=== PATIENT | male | born 1970 | race Caucasian/White ===

== ENCOUNTER 2018-02-08 03:34 | Inpatient (IN) | payer MEDICARE, MEDICAID ==
[~2018-02-08] VITALS: Ht 152.4 cm; Wt 59.0 kg
[2018-02-08] MEDS ORDERED: METHYLPREDNISOLONE SOD SUCC 125 MG/2 ML VIAL IV STA (03:54)
[2018-02-08] MEDS ORDERED: IPRATROPIUM BROMIDE (0.02%) 0.5MG/2.5ML NEB HHN STA (03:54)
[2018-02-08] MEDS ORDERED: ALBUTEROL (0.083%) 2.5MG/3ML NEB HHN STA (03:54)
[2018-02-08] MEDS ORDERED: ASPIRIN 81MG TABLET PO ONE (04:00)
[2018-02-08] MEDS ORDERED: MAGNESIUM 2 G PREMIX 50 ML IV ONE (04:00)
[2018-02-08] MEDS ORDERED: ASPIRIN 300MG SUPP PR ONE (04:15)
[2018-02-08 04:55] LABS: D-DIMER 0.74 mg/L FEU (<0.50); PROTHROMBIN TIME 10.2 sec (9.4-11.6)
[2018-02-08] MEDS ORDERED: PIPERACILLIN/TAZ 3.375G PREMIX 50 ML IV SCH (05:16)
[2018-02-08 05:22] LABS: CHLORIDE 96 mEq/L (98-107)
[2018-02-08 05:27] LABS: ETHANOL BLOOD < 10 mg/dL
[2018-02-08 05:38] LABS: CLARITY URINE CLOUDY (CLEAR); COLOR URINE YELLOW (YELLOW); KETONES URINE NEGATIVE (NEGATIVE); LEUKOCYTE ESTERASE URINE 3+ (NEGATIVE); NITRITE URINE NEGATIVE (NEGATIVE); OCCULT BLOOD URINE 1+ (NEGATIVE); PH URINE 6.5 (4.5-8.0); PROTEIN URINE 1+ (NEGATIVE); SPECIFIC GRAVITY URINE 1.014 (1.005-1.030); UROBILINOGEN URINE 0.2 E.U./dL (0.2-1.0)
[2018-02-08 05:58] LABS: BG BASE EXCESS 2.6 mmol/L (-2.0-2.0); BG CARBOXYHEMOGLOBIN 1.4 % (0.5-1.5); BG DEOXYHEMOGLOBIN 9.6 % (0.0-5.0); BG FRACTION INSPIRED OXYGEN 50; BG HCO3 ACT 28.8 mmol/L (22.0-26.0); BG OXYGEN SATURATION 90.3 % (92.0-98.5); BG PCO2 50.6 mmHg (35.0-45.0); BG PH 7.373 (7.350-7.450); BG PO2 56.3 mmHg (75.0-100.0); BG SAMPLE SITE RIGHT RADIAL; BG TOTAL HEMOGLOBIN 14.3 g/dL (12.0-18.0); BG VENT MODE MASK - TRACH
[2018-02-08 06:02] LABS: HEMATOCRIT. 40.9 % (42.0-52.0); HEMOGLOBIN. 14.1 g/dL (14.0-18.0); MEAN CORPUSCULAR HEMOGLOBIN 32.2 pg (28.0-32.0); MEAN CORPUSCULAR VOLUME 93.1 fL (80.0-94.0); MEAN PLATELET VOLUME 9.6 fl (7.4-10.4); PLATELET 148 x1000/uL (130-400); RED CELL DISTRIBUTION WIDTH 13.8 % (11.6-14.6)
[2018-02-08 06:06] LABS: *AMPHETAMINES SCREEN URINE NEGATIVE (NEGATIVE); *BARBITURATES SCREEN URINE PRESUMTIVE POSITIVE (NEGATIVE); *BENZODIAZEPINES SCREEN URINE PRESUMTIVE POSITIVE (NEGATIVE); *COCAINE SCREEN URINE NEGATIVE (NEGATIVE); METHADONE URINE SCREEN NEGATIVE (NEGATIVE)
[2018-02-08 06:07] LABS: CANNABINOID URINE SCREEN NEGATIVE (NEGATIVE); OPIATES URINE SCREEN NEGATIVE (NEGATIVE); PHENCYCLIDINE URINE SCREEN NEGATIVE (NEGATIVE)
[2018-02-08 09:01] LABS: PLATELET ESTIMATE NORMAL
[2018-02-08 10:30] VITALS: BP 96/51
[2018-02-08] MEDS ORDERED: GUAIFENESIN 200MG/10ML SUGAR FREE UDC PO PRN (11:15)
[2018-02-08] MEDS ORDERED: DIPHENHYDRAMINE 50MG/ML VIAL IV PRN (11:15)
[2018-02-08] MEDS ORDERED: DOCUSATE SODIUM 100MG CAPSULE PO PRN (11:15)
[2018-02-08] MEDS ORDERED: NITROGLYCERIN 0.4MG TABLET SL SL PRN (11:15)
[2018-02-08] MEDS ORDERED: NA PHOS,M-B/NA PHOS,DI-BA ENEMA 118ML PR PRN (11:15)
[2018-02-08] MEDS ORDERED: VANCOMYCIN 1 G PREMIX 200 ML IV SCH (11:15)
[2018-02-08] MEDS ORDERED: ONDANSETRON HCL 4MG/2ML VIAL IV PRN (11:15)
[2018-02-08] MEDS ORDERED: MAGNESIUM/ALUMINUM HYDROXIDE/SIMETHICONE 30ML UDC PO PRN (11:15)
[2018-02-08] MEDS ORDERED: ACETAMINOPHEN 325MG TABLET PO PRN (11:15)
[2018-02-08] MEDS ORDERED: CLONIDINE 0.1MG TABLET PO PRN (11:15)
[2018-02-08 12:00] VITALS: BP 94/50
[2018-02-08] MEDS ORDERED: MEDICATION NOT ON FORMULARY EA (Cholecalciferol (Vitamin D) 1 CAP) PO SCH (12:00)
[2018-02-08] MEDS ORDERED: LORA10TA7 PO (12:06)
[2018-02-08] MEDS ORDERED: METO-293 PO (12:06)
[2018-02-08] MEDS ORDERED: PHEN32.43 JT (12:06)
[2018-02-08] MEDS ORDERED: FERR325T6 PO (12:06)
[2018-02-08] MEDS ORDERED: CHOL100046 PO (12:06)
[2018-02-08] MEDS ORDERED: LEVE500T19 PO (12:06)
[2018-02-08] MEDS ORDERED: CLONIDINE 0.1MG TABLET JT PRN (12:20)
[2018-02-08] MEDS ORDERED: GUAIFENESIN 200MG/10ML SUGAR FREE UDC JT PRN (12:21)
[2018-02-08] MEDS ORDERED: MAGNESIUM/ALUMINUM HYDROXIDE/SIMETHICONE 30ML UDC JT PRN (12:21)
[2018-02-08] MEDS ORDERED: MEDICATION NOT ON FORMULARY EA (Ferrous Sulfate 325 MG) PO SCH (13:00)
[2018-02-08] MEDS ORDERED: VANCOMYCIN 1 G PREMIX 200 ML IV NR (13:00)
[2018-02-08] MEDS ORDERED: POTASSIUM CHLORIDE 20MEQ/PACKET PO NR (13:10)
[2018-02-08] MEDS: ENOXAPARIN 40MG/0.4ML SYR SUBCUT SCH (14:00)
[2018-02-08] MEDS: METOCLOPRAMIDE 10MG/10 ML UDC JT SCH ×3 (14:00→20:07)
[2018-02-08] MEDS: CHOLECALCIFEROL (D3) 1000 UNIT TABLET JT SCH (14:01)
[2018-02-08] MEDS: SODIUM CHLORIDE 0.9% 1,000 ML IV SCH (14:01)
[2018-02-08] MEDS: PIPERACILLIN/TAZ 3.375G PREMIX 50 ML IV SCH ×2 (14:02→20:29)
[2018-02-08] MEDS: LEVETIRACETAM 500MG/5ML CUP JT SCH ×2 (14:10→17:47)
[2018-02-08] MEDS: FERROUS SULFATE 300MG/5ML UDC JT SCH ×2 (14:14→17:47)
[2018-02-08] MEDS: IPRATROPIUM/ALBUTEROL 0.5-3(2.5)MG/3ML NEB HHN SCH ×3 (14:36→21:14)
[2018-02-08 16:00] VITALS: BP 106/61
[2018-02-08 16:10] LABS: LDL CHOLESTEROL 75 mg/dL (5-100)
[2018-02-08 16:12] LABS: CREATINE KINASE 16 IU/L (39-308); HDL CHOLESTEROL 33 mg/dL (40-59)
[2018-02-08 16:14] LABS: CREATINE KINASE MB FRACTION 0.8 ng/mL (0.5-3.6)
[2018-02-08] MEDS: BUDESONIDE 0.5MG/2ML NEB HHN SCH (17:11)
[2018-02-08] MEDS: VANCOMYCIN 1250MG in DEXTROSE 5% WATER 250ML IV SCH ×2 (17:41→22:26)
[2018-02-08 20:00] VITALS: BP 102/57
[2018-02-08] MEDS: PHENOBARBITAL 30 MG TABLET JT SCH (20:07)
[2018-02-08] MEDS: ASCORBIC ACID 500 MG TABLET JT SCH (20:07)
[2018-02-08] MEDS: ACETAMINOPHEN 650MG/20.3ML UDC JT PRN (20:17)
[2018-02-08] MEDS ORDERED: VANCOMYCIN 750 MG PREMIX 150 ML IV SCH (21:00)
[2018-02-08] MEDS ORDERED: ZOLPIDEM TARTRATE 5MG TABLET JT PRN (21:00)
[2018-02-08 23:47] LABS: CREATINE KINASE 19 IU/L (39-308)
[2018-02-08 23:48] LABS: CREATINE KINASE MB FRACTION 0.7 ng/mL (0.5-3.6)
[2018-02-09] VITALS: BP 119/61
[2018-02-09] MEDS: SODIUM CHLORIDE 0.9% 1,000 ML IV SCH ×2 (00:28→17:57)
[2018-02-09] MEDS: ACETAMINOPHEN 650MG/20.3ML UDC JT PRN (00:29)
[2018-02-09] MEDS: BUDESONIDE 0.5MG/2ML NEB HHN SCH ×4 (01:46→20:13)
[2018-02-09] MEDS: IPRATROPIUM/ALBUTEROL 0.5-3(2.5)MG/3ML NEB HHN SCH ×5 (01:46→20:14)
[2018-02-09 04:00] VITALS: BP 120/72
[2018-02-09] MEDS: PIPERACILLIN/TAZ 3.375G PREMIX 50 ML IV SCH ×3 (04:59→23:18)
[2018-02-09] MEDS: VANCOMYCIN 1250MG in DEXTROSE 5% WATER 250ML IV SCH ×2 (07:06→14:35)
[2018-02-09 08:10] VITALS: BP 98/64
[2018-02-09] MEDS: FERROUS SULFATE 300MG/5ML UDC JT SCH ×3 (08:20→17:54)
[2018-02-09] MEDS: CHOLECALCIFEROL (D3) 1000 UNIT TABLET JT SCH (08:28)
[2018-02-09] MEDS: ASCORBIC ACID 500 MG TABLET JT SCH ×2 (08:50→23:23)
[2018-02-09] MEDS: ENOXAPARIN 40MG/0.4ML SYR SUBCUT SCH (08:51)
[2018-02-09] MEDS: LEVETIRACETAM 500MG/5ML CUP JT SCH ×2 (08:51→17:54)
[2018-02-09] MEDS: METOCLOPRAMIDE 10MG/10 ML UDC JT SCH ×4 (08:51→23:23)
[2018-02-09] MEDS: PANTOPRAZOLE SODIUM 40 MG/VIAL IV SCH (08:52)
[2018-02-09] MEDS ORDERED: ZINC SULFATE 220 MG ( 50 ) CAPSULE JT SCH (09:00)
[2018-02-09 12:25] VITALS: BP 118/72
[2018-02-09 15:39] LABS: CHLORIDE 102 mEq/L (98-107)
[2018-02-09 16:00] VITALS: BP 113/61
[2018-02-09 16:43] LABS: VANCOMYCIN TROUGH 76.6 ug/mL (5.0-10.0)
[2018-02-09 19:40] LABS: VANCOMYCIN TROUGH 64.5 ug/mL (5.0-10.0)
[2018-02-09 20:35] VITALS: BP 135/78
[2018-02-09] MEDS: PHENOBARBITAL 30 MG TABLET JT SCH (23:23)
[2018-02-10] VITALS (7 sets, daily range): BP systolic 85–139; BP diastolic 56–73
[2018-02-10] MEDS: IPRATROPIUM/ALBUTEROL 0.5-3(2.5)MG/3ML NEB HHN SCH ×5 (00:14→15:13)
[2018-02-10] MEDS: PIPERACILLIN/TAZ 3.375G PREMIX 50 ML IV SCH ×3 (05:37→22:02)
[2018-02-10 05:51] LABS: HEMATOCRIT. 41.7 % (42.0-52.0); MEAN CORPUSCULAR HEMOGLOBIN 31.4 pg (28.0-32.0); MEAN CORPUSCULAR VOLUME 93.4 fL (80.0-94.0); MEAN PLATELET VOLUME 9.3 fl (7.4-10.4); PLATELET 205 x1000/uL (130-400); RED BLOOD CELL COUNT 4.46 mill/uL (4.7-6.1)
[2018-02-10] MEDS: BUDESONIDE 0.5MG/2ML NEB HHN SCH (08:02)
[2018-02-10] MEDS: ENOXAPARIN 40MG/0.4ML SYR SUBCUT SCH (09:00)
[2018-02-10] MEDS: LORAZEPAM 2MG/ML CPJ IV PRN (11:17)
[2018-02-10] MEDS ORDERED: SODIUM CHLORIDE 0.9% 250 ML IV NR (11:45)
[2018-02-10] MEDS ORDERED: DIGOXIN 500MCG/2ML AMP IV NR (12:00)
[2018-02-10] MEDS ORDERED: DILTIAZEM HCL 5MG/ML 5ML VIAL IV NR (12:30)
[2018-02-10] MEDS ORDERED: DILTIAZEM HCL 125 MG in DEXT 5% WATER 100 ML IV PRN (12:30)
[2018-02-10] MEDS: FERROUS SULFATE 300MG/5ML UDC JT SCH ×3 (13:00→17:56)
[2018-02-10] MEDS: METOCLOPRAMIDE 10MG/10 ML UDC JT SCH ×4 (13:00→20:39)
[2018-02-10] MEDS: PANTOPRAZOLE SODIUM 40 MG/VIAL IV SCH (13:41)
[2018-02-10] MEDS: LEVETIRACETAM 500MG/5ML CUP JT SCH ×2 (13:41→17:56)
[2018-02-10] MEDS: DOCUSATE SODIUM SUGAR FREE 100MG/10ML UDC JT PRN (13:41)
[2018-02-10] MEDS: DILTIAZEM HCL 30MG TABLET JT SCH ×2 (14:00→22:00)
[2018-02-10] MEDS: SODIUM CHLORIDE 0.9% 1,000 ML IV SCH ×2 (14:14→16:29)
[2018-02-10] MEDS ORDERED: DILTIAZEM HCL 5MG/ML 5ML VIAL IV PRN ×2 (16:00→20:30)
[2018-02-10] MEDS ORDERED: VANCOMYCIN 500 MG PREMIX 100 ML IV SCH (18:00)
[2018-02-10] MEDS ORDERED: ACETAMINOPHEN 650MG/20.3ML UDC PO PRN (20:30)
[2018-02-10] MEDS: VANCOMYCIN 750 MG PREMIX 150 ML IV SCH (20:38)
[2018-02-10] MEDS: ACETAMINOPHEN 650MG/20.3ML UDC JT PRN (20:39)
[2018-02-10] MEDS: IPRATROPIUM/ALBUTEROL 0.5-3(2.5)MG/3ML NEB INH PRN (21:00)
[2018-02-10] MEDS: PHENOBARBITAL ELIXIR 30 MG/7.5ML UDC JT SCH (23:13)
[2018-02-10 23:53] LABS: PLATELET ESTIMATE NORMAL
[2018-02-11] VITALS (7 sets, daily range): BP systolic 97–166; BP diastolic 65–101
[2018-02-11] MEDS: IPRATROPIUM/ALBUTEROL 0.5-3(2.5)MG/3ML NEB INH PRN ×4 (00:48→11:43)
[2018-02-11] MEDS: ACETYLCYSTEINE 100MG/ML 10% VIAL 4ML INH SCH ×3 (00:49→16:12)
[2018-02-11] MEDS: ACETAMINOPHEN 650MG/20.3ML UDC JT PRN ×3 (01:55→22:23)
[2018-02-11] MEDS: SODIUM CHLORIDE 0.9% 1,000 ML IV SCH (06:27)
[2018-02-11] MEDS: PIPERACILLIN/TAZ 3.375G PREMIX 50 ML IV SCH ×3 (06:27→21:41)
[2018-02-11 07:37] LABS: BASOPHILS % 0.4 % (0.0-2.0); EOSINOPHILS % 4.6 % (0.0-5.0); HEMATOCRIT. 38.8 % (42.0-52.0); HEMOGLOBIN. 13.3 g/dL (14.0-18.0); LYMPHOCYTES % 12.7 % (20.0-50.0); MEAN CORPUSCULAR HEMOGLOBIN 32.3 pg (28.0-32.0); MEAN CORPUSCULAR VOLUME 94.1 fL (80.0-94.0); MEAN PLATELET VOLUME 8.3 fl (7.4-10.4); MONOCYTES % 13.4 % (2.0-8.0); NEUTROPHILS % 68.9 % (40.0-76.0); PLATELET 223 x1000/uL (130-400); RED BLOOD CELL COUNT 4.13 mill/uL (4.7-6.1); RED CELL DISTRIBUTION WIDTH 13.9 % (11.6-14.6)
[2018-02-11 07:50] LABS: CHLORIDE 99 mEq/L (98-107)
[2018-02-11] MEDS: VANCOMYCIN 750 MG PREMIX 150 ML IV SCH ×2 (08:09→21:41)
[2018-02-11] MEDS ORDERED: POTASSIUM CHLORIDE 20MEQ/PACKET PO NR (11:00)
[2018-02-11] MEDS: PANTOPRAZOLE SODIUM 40 MG/VIAL IV SCH (11:16)
[2018-02-11] MEDS: LEVETIRACETAM 500MG/5ML CUP JT SCH ×2 (11:16→17:00)
[2018-02-11] MEDS: ENOXAPARIN 40MG/0.4ML SYR SUBCUT SCH (11:16)
[2018-02-11] MEDS: METOCLOPRAMIDE 10MG/10 ML UDC JT SCH ×4 (11:16→21:40)
[2018-02-11] MEDS: FERROUS SULFATE 300MG/5ML UDC JT SCH ×3 (14:21→17:00)
[2018-02-11] MEDS: DILTIAZEM HCL 30MG TABLET JT SCH ×2 (14:28→21:40)
[2018-02-11] MEDS ORDERED: SODIUM CHLORIDE 3% FOR INH 15ML VIAL NEB INH SCH (14:30)
[2018-02-11] MEDS: IPRATROPIUM BROMIDE (0.02%) 0.5MG/2.5ML NEB HHN SCH ×2 (16:12→22:06)
[2018-02-11] MEDS: PHENOBARBITAL ELIXIR 30 MG/7.5ML UDC JT SCH (21:40)
[2018-02-12] VITALS (12 sets, daily range): BP systolic 101–145; BP diastolic 63–97
[2018-02-12] MEDS: ACETYLCYSTEINE 100MG/ML 10% VIAL 4ML INH SCH ×5 (00:49→22:00)
[2018-02-12] MEDS: IPRATROPIUM BROMIDE (0.02%) 0.5MG/2.5ML NEB HHN SCH ×5 (00:50→16:10)
[2018-02-12] MEDS: PIPERACILLIN/TAZ 3.375G PREMIX 50 ML IV SCH ×5 (00:52→23:29)
[2018-02-12] MEDS: SODIUM CHLORIDE 0.9% 1,000 ML IV SCH ×2 (00:53→08:29)
[2018-02-12] MEDS: DILTIAZEM HCL 30MG TABLET JT SCH (06:17)
[2018-02-12] MEDS: VANCOMYCIN 750 MG PREMIX 150 ML IV SCH (06:55)
[2018-02-12] MEDS: FAMOTIDINE 20MG TABLET JT SCH ×2 (09:46→21:00)
[2018-02-12] MEDS: METOCLOPRAMIDE 10MG/10 ML UDC JT SCH ×4 (09:47→21:00)
[2018-02-12] MEDS: FERROUS SULFATE 300MG/5ML UDC JT SCH ×3 (09:47→17:54)
[2018-02-12] MEDS: LEVETIRACETAM 500MG/5ML CUP JT SCH ×2 (09:47→17:55)
[2018-02-12] MEDS: ENOXAPARIN 40MG/0.4ML SYR SUBCUT SCH (09:48)
[2018-02-12 12:45] LABS: HEMATOCRIT. 39.2 % (42.0-52.0); HEMOGLOBIN. 13.2 g/dL (14.0-18.0); MEAN CORPUSCULAR HEMOGLOBIN 31.7 pg (28.0-32.0); MEAN CORPUSCULAR VOLUME 94.1 fL (80.0-94.0); MEAN PLATELET VOLUME 8.5 fl (7.4-10.4); PLATELET 271 x1000/uL (130-400); RED BLOOD CELL COUNT 4.17 mill/uL (4.7-6.1); RED CELL DISTRIBUTION WIDTH 13.8 % (11.6-14.6)
[2018-02-12 13:08] LABS: CHLORIDE 114 mEq/L (98-107)
[2018-02-12] MEDS: DILTIAZEM HCL 60MG TABLET JT SCH ×2 (13:39→21:01)
[2018-02-12 16:14] LABS: PLATELET ESTIMATE NORMAL
[2018-02-12] MEDS ORDERED: IPRATROPIUM/ALBUTEROL 0.5-3(2.5)MG/3ML NEB HHN PRN (16:30)
[2018-02-12] MEDS ORDERED: SODIUM CHLORIDE 3% FOR INH 15ML VIAL NEB INH SCH (17:00)
[2018-02-12] MEDS ORDERED: GUAI5SYR3 JT (17:16)
[2018-02-12] MEDS ORDERED: CALCIUM CARBONATE JT (17:16)
[2018-02-12] MEDS ORDERED: GLYC1SOL JT (17:16)
[2018-02-12] MEDS ORDERED: AMIN30LI2 JT (17:16)
[2018-02-12] MEDS ORDERED: [UNRECOGNIZED DRUG - OTHER] (17:16)
[2018-02-12] MEDS ORDERED: MENT3.5O TP (17:16)
[2018-02-12] MEDS ORDERED: ACET650S22 JT (17:16)
[2018-02-12] MEDS ORDERED: BUDE0.5A3 NEB (17:16)
[2018-02-12] MEDS ORDERED: LACT10SO6 JT (17:16)
[2018-02-12] MEDS ORDERED: CHLO1LIQ2 MC (17:16)
[2018-02-12] MEDS ORDERED: DIAZ5TAB4 JT (17:16)
[2018-02-12] MEDS ORDERED: DIGOXIN 500MCG/2ML AMP IV SCH (18:00)
[2018-02-12] MEDS ORDERED: KCL 20MEQ/100ML PREMIX 100 ML IV NR (20:00)
[2018-02-12] MEDS: ACETAMINOPHEN 650MG/20.3ML UDC JT PRN (20:59)
[2018-02-12] MEDS: LORAZEPAM 2MG/ML CPJ IV PRN (21:00)
[2018-02-12] MEDS: PHENOBARBITAL ELIXIR 30 MG/7.5ML UDC JT SCH (21:00)
[2018-02-12] MEDS: IPRATROPIUM/ALBUTEROL 0.5-3(2.5)MG/3ML NEB HHN SCH (21:41)
[2018-02-13] VITALS (94 sets, daily range): BP systolic 68–165; BP diastolic 32–124
[2018-02-13] MEDS: IPRATROPIUM/ALBUTEROL 0.5-3(2.5)MG/3ML NEB HHN SCH ×6 (00:05→20:33)
[2018-02-13] MEDS: ACETAMINOPHEN 650MG/20.3ML UDC JT PRN (02:20)
[2018-02-13] MEDS: LORAZEPAM 2MG/ML CPJ IV PRN (02:20)
[2018-02-13] MEDS ORDERED: NOREPINEPHRINE 4 MG in DEXT 5% WATER 250 ML IV STA (04:12)
[2018-02-13] MEDS ORDERED: SODIUM CHLORIDE 0.9% 1,000 ML IV ONE (04:12)
[2018-02-13] MEDS ORDERED: NOREPINEPHRINE 8 MG in DEXT 5% WATER 242 ML IV PRN (04:15)
[2018-02-13] MEDS: DILTIAZEM HCL 60MG TABLET JT SCH ×3 (05:44→22:02)
[2018-02-13] MEDS: PIPERACILLIN/TAZ 3.375G PREMIX 50 ML IV SCH ×3 (06:09→17:11)
[2018-02-13] MEDS: ACETYLCYSTEINE 100MG/ML 10% VIAL 4ML INH SCH ×2 (08:11→16:04)
[2018-02-13] MEDS: NOREPINEPHRINE 8 MG in DEXT 5% WATER 242 ML IV PRN (09:00)
[2018-02-13] MEDS: LEVETIRACETAM 500MG/5ML CUP JT SCH ×2 (09:14→17:11)
[2018-02-13] MEDS: ENOXAPARIN 40MG/0.4ML SYR SUBCUT SCH (09:14)
[2018-02-13] MEDS: FERROUS SULFATE 300MG/5ML UDC JT SCH ×3 (09:14→17:11)
[2018-02-13] MEDS: METOCLOPRAMIDE 10MG/10 ML UDC JT SCH ×4 (09:14→20:34)
[2018-02-13] MEDS: FAMOTIDINE 20MG TABLET JT SCH ×2 (09:14→20:34)
[2018-02-13] MEDS: DOCUSATE SODIUM SUGAR FREE 100MG/10ML UDC JT PRN (09:14)
[2018-02-13 09:44] LABS: BG CARBOXYHEMOGLOBIN 0.9 % (0.5-1.5); BG DEOXYHEMOGLOBIN 1.8 % (0.0-5.0); BG HCO3 ACT 20.6 mmol/L (22.0-26.0); BG METHEMOGLOBIN 0.1 % (0.0-1.5); BG OXYGEN SATURATION 98.2 % (92.0-98.5); BG OXYHEMOGLOBIN 97.2 % (94.0-97.0); BG PCO2 40.3 mmHg (35.0-45.0); BG PH 7.327 (7.350-7.450); BG PO2 116.6 mmHg (75.0-100.0); BG SAMPLE SITE RIGHT RADIAL; BG VENT MODE MASK - TRACH
[2018-02-13 12:40] LABS: BASOPHILS % 0.5 % (0.0-2.0); EOSINOPHILS % 7.7 % (0.0-5.0); HEMATOCRIT. 40.6 % (42.0-52.0); HEMOGLOBIN. 14.1 g/dL (14.0-18.0); LYMPHOCYTES % 9.6 % (20.0-50.0); MEAN CORPUSCULAR HEMOGLOBIN 32.9 pg (28.0-32.0); MEAN CORPUSCULAR VOLUME 94.6 fL (80.0-94.0); MEAN PLATELET VOLUME 8.3 fl (7.4-10.4); MONOCYTES % 11.7 % (2.0-8.0); NEUTROPHILS % 70.5 % (40.0-76.0); PLATELET 336 x1000/uL (130-400); RED BLOOD CELL COUNT 4.29 mill/uL (4.7-6.1); RED CELL DISTRIBUTION WIDTH 13.6 % (11.6-14.6)
[2018-02-13 13:03] LABS: CHLORIDE 116 mEq/L (98-107)
[2018-02-13 13:23] LABS: PHENOBARBITAL 9.7 ug/mL (15.0-40.0)
[2018-02-13] MEDS ORDERED: POTASSIUM CHLORIDE 20MEQ/PACKET PO SCH (13:30)
[2018-02-13] MEDS ORDERED: AMIODARONE HCL 50MG/ML 3ML VIAL IV ONE (13:30)
[2018-02-13] MEDS ORDERED: AMIODARONE HCL 150 MG in DEXT 5% WATER 97 ML IV SCH (14:00)
[2018-02-13] MEDS ORDERED: AMIODARONE HCL 900 MG in DEXT 5% WATER 482 ML IV ONE (14:00)
[2018-02-13] MEDS: DEXT 5%/0.45% NACL 1000ML 1,000 ML IV SCH (15:04)
[2018-02-13] MEDS: PROPOFOL 10MG/ML 100ML 100 ML IV PRN (15:05)
[2018-02-13] MEDS ORDERED: PHENOBARBITAL ELIXIR 30 MG/7.5ML UDC JT SCH (21:00)
[2018-02-13] MEDS: PHENOBARBITAL ELIXIR 30 MG/7.5ML UDC JT SCH (22:03)
[2018-02-14] VITALS (82 sets, daily range): BP systolic 91–194; BP diastolic 51–122
[2018-02-14] MEDS: IPRATROPIUM/ALBUTEROL 0.5-3(2.5)MG/3ML NEB HHN SCH ×6 (00:25→20:27)
[2018-02-14] MEDS: ACETYLCYSTEINE 100MG/ML 10% VIAL 4ML INH SCH ×3 (00:25→16:05)
[2018-02-14] MEDS: ACETAMINOPHEN 650MG/20.3ML UDC JT PRN ×2 (00:40→06:59)
[2018-02-14] MEDS: PIPERACILLIN/TAZ 3.375G PREMIX 50 ML IV SCH ×4 (00:53→17:20)
[2018-02-14] MEDS: DEXT 5%/0.45% NACL 1000ML 1,000 ML IV SCH ×2 (02:58→15:51)
[2018-02-14] MEDS: DILTIAZEM HCL 60MG TABLET JT SCH ×3 (05:44→22:00)
[2018-02-14 05:49] LABS: HEMATOCRIT. 40.6 % (42.0-52.0); MEAN CORPUSCULAR HEMOGLOBIN 32.8 pg (28.0-32.0); MEAN CORPUSCULAR VOLUME 95.1 fL (80.0-94.0); RED BLOOD CELL COUNT 4.27 mill/uL (4.7-6.1); RED CELL DISTRIBUTION WIDTH 13.9 % (11.6-14.6)
[2018-02-14 06:08] LABS: CHLORIDE 112 mEq/L (98-107)
[2018-02-14] MEDS: PROPOFOL 10MG/ML 100ML 100 ML IV PRN (08:20)
[2018-02-14] MEDS: NOREPINEPHRINE 8 MG in DEXT 5% WATER 242 ML IV PRN (09:07)
[2018-02-14] MEDS: FAMOTIDINE 20MG TABLET JT SCH ×2 (09:59→21:13)
[2018-02-14] MEDS: LEVETIRACETAM 500MG/5ML CUP JT SCH ×2 (09:59→17:20)
[2018-02-14] MEDS: FERROUS SULFATE 300MG/5ML UDC JT SCH ×3 (09:59→17:20)
[2018-02-14] MEDS: METOCLOPRAMIDE 10MG/10 ML UDC JT SCH ×4 (09:59→21:13)
[2018-02-14] MEDS: ENOXAPARIN 40MG/0.4ML SYR SUBCUT SCH (10:00)
[2018-02-14] MEDS: AMIODARONE HCL 200 MG TABLET PO SCH ×2 (10:30→21:13)
[2018-02-14] MEDS ORDERED: SODIUM CHLORIDE 0.9% 1,000 ML IV ONE (12:00)
[2018-02-14 13:17] LABS: BG BASE EXCESS -3.9 mmol/L (-2.0-2.0); BG CARBOXYHEMOGLOBIN 1.1 % (0.5-1.5); BG DEOXYHEMOGLOBIN 0.6 % (0.0-5.0); BG FRACTION INSPIRED OXYGEN 40; BG HCO3 ACT 19.5 mmol/L (22.0-26.0); BG METHEMOGLOBIN 0.2 % (0.0-1.5); BG OXYGEN SATURATION 99.4 % (92.0-98.5); BG OXYHEMOGLOBIN 98.1 % (94.0-97.0); BG PCO2 30.9 mmHg (35.0-45.0); BG PH 7.419 (7.350-7.450); BG PO2 190.1 mmHg (75.0-100.0); BG SAMPLE SITE RIGHT BRACHIAL; BG TIDAL VOLUME(mL) 500 mL; BG VENT MODE VENT - A/C; BG VENT RATE 12 set
[2018-02-14] MEDS: PHENOBARBITAL ELIXIR 30 MG/7.5ML UDC JT SCH (21:13)
[2018-02-15] VITALS (45 sets, daily range): BP systolic 88–139; BP diastolic 40–84
[2018-02-15] MEDS: PIPERACILLIN/TAZ 3.375G PREMIX 50 ML IV SCH ×4 (00:06→17:56)
[2018-02-15] MEDS: IPRATROPIUM/ALBUTEROL 0.5-3(2.5)MG/3ML NEB HHN SCH ×7 (00:16→23:41)
[2018-02-15] MEDS: ACETYLCYSTEINE 100MG/ML 10% VIAL 4ML INH SCH ×4 (00:16→19:23)
[2018-02-15] MEDS: DEXT 5%/0.45% NACL 1000ML 1,000 ML IV SCH ×2 (05:24→17:30)
[2018-02-15 05:30] LABS: BASOPHILS % 0.3 % (0.0-2.0); EOSINOPHILS % 8.4 % (0.0-5.0); HEMATOCRIT. 34.3 % (42.0-52.0); HEMOGLOBIN. 11.8 g/dL (14.0-18.0); LYMPHOCYTES % 17.1 % (20.0-50.0); MEAN CORPUSCULAR HEMOGLOBIN 32.3 pg (28.0-32.0); MEAN CORPUSCULAR VOLUME 94.1 fL (80.0-94.0); MEAN PLATELET VOLUME 8.4 fl (7.4-10.4); MONOCYTES % 8.8 % (2.0-8.0); NEUTROPHILS % 65.4 % (40.0-76.0); PLATELET 271 x1000/uL (130-400); RED BLOOD CELL COUNT 3.65 mill/uL (4.7-6.1); RED CELL DISTRIBUTION WIDTH 13.6 % (11.6-14.6)
[2018-02-15 05:48] LABS: CHLORIDE 115 mEq/L (98-107)
[2018-02-15] MEDS: DILTIAZEM HCL 60MG TABLET JT SCH ×3 (06:00→22:10)
[2018-02-15] MEDS: FAMOTIDINE 20MG TABLET JT SCH ×2 (09:04→20:37)
[2018-02-15] MEDS: METOCLOPRAMIDE 10MG/10 ML UDC JT SCH ×4 (09:04→20:37)
[2018-02-15] MEDS: LEVETIRACETAM 500MG/5ML CUP JT SCH ×2 (09:04→17:29)
[2018-02-15] MEDS: ENOXAPARIN 40MG/0.4ML SYR SUBCUT SCH (09:04)
[2018-02-15] MEDS: FERROUS SULFATE 300MG/5ML UDC JT SCH ×3 (09:04→17:29)
[2018-02-15] MEDS: AMIODARONE HCL 200 MG TABLET PO SCH ×2 (09:05→20:37)
[2018-02-15 10:15] LABS: MEAN PLATELET VOLUME 9.1 fl (7.4-10.4); PLATELET 300 x1000/uL (130-400)
[2018-02-15 10:19] LABS: BG BASE EXCESS -4.4 mmol/L (-2.0-2.0); BG CARBOXYHEMOGLOBIN 1.4 % (0.5-1.5); BG FRACTION INSPIRED OXYGEN 28; BG HCO3 ACT 20.2 mmol/L (22.0-26.0); BG METHEMOGLOBIN 0.2 % (0.0-1.5); BG OXYHEMOGLOBIN 96.4 % (94.0-97.0); BG PCO2 35.6 mmHg (35.0-45.0); BG PH 7.372 (7.350-7.450); BG PO2 96.4 mmHg (75.0-100.0); BG SAMPLE SITE RIGHT BRACHIAL; BG TIDAL VOLUME(mL) 500 mL; BG TOTAL HEMOGLOBIN 12.4 g/dL (12.0-18.0); BG VENT MODE VENT - A/C; BG VENT RATE 12 set
[2018-02-15] MEDS: ACETAMINOPHEN 650MG/20.3ML UDC JT PRN (18:08)
[2018-02-15] MEDS: PHENOBARBITAL ELIXIR 30 MG/7.5ML UDC JT SCH (20:37)
[2018-02-16] VITALS: BP 108/75
[2018-02-16 00:32] VITALS: BP 93/70
[2018-02-16 00:50] VITALS: BP 44/27
[2018-02-16 00:52] VITALS: BP 93/45
[2018-02-16 00:56] VITALS: BP 43/27
[2018-02-16 00:58] VITALS: BP 53/22
== END 2018-02-16 01:28 | disposition expired | DRG 871 ==
LOC: ER 03:34 → ENRESERV 08:49 → 7WST 10:22 → 5EST 02-11 20:57 → CVICU 02-13 05:00
PROVIDERS: ADMIT Internal Medicine; ATTEND Internal Medicine
PROC: 02HV33Z Insertion of Infusion Device into Superior Vena Cava, Percutaneous Approach (ICD-10-PCS; 2018-02-10)
PROC: B548ZZA Ultrasonography of Superior Vena Cava, Guidance (ICD-10-PCS; 2018-02-10)
PROC: 5A1945Z Respiratory Ventilation, 24-96 Consecutive Hours (ICD-10-PCS; principal; 2018-02-13)
DX: A41.9 Sepsis, unspecified organism (principal); R65.21 Severe sepsis with septic shock; J96.20 Acute and chronic respiratory failure, unspecified whether with hypoxia or hypercapnia; E43 Unspecified severe protein-calorie malnutrition; J18.9 Pneumonia, unspecified organism; Z93.0 Tracheostomy status; I95.9 Hypotension, unspecified; I11.9 Hypertensive heart disease without heart failure; I47.1 Supraventricular tachycardia; N39.0 Urinary tract infection, site not specified; E87.1 Hypo-osmolality and hyponatremia; R47.01 Aphasia; I48.92 Unspecified atrial flutter; I46.9 Cardiac arrest, cause unspecified; E87.6 Hypokalemia; F79 Unspecified intellectual disabilities; G40.909 Epilepsy, unspecified, not intractable, without status epilepticus; I48.0 Paroxysmal atrial fibrillation; B96.1 Klebsiella pneumoniae [K. pneumoniae] as the cause of diseases classified elsewhere; M81.0 Age-related osteoporosis without current pathological fracture; Z86.61 Personal history of infections of the central nervous system; Z66 Do not resuscitate; B96.5 Pseudomonas (aeruginosa) (mallei) (pseudomallei) as the cause of diseases classified elsewhere; J45.909 Unspecified asthma, uncomplicated; Z79.899 Other long term (current) drug therapy; Z74.01 Bed confinement status; Z93.1 Gastrostomy status; Z68.25 Body mass index [BMI] 25.0-25.9, adult
CPT/HCPCS: 36415; 36569; 36600; 71045; 76937; 80048; 80053; 80061; 80076; 80184; 80202; 80305; 81003; 82375; 82550; 82553; 82805; 82962; 83036; 83605; 83690; 83735; 83880; 84443; 84478; 84484; 85025; 85379; 85610; 87015; 87040; 87045; 87070; 87077; 87086; 87186; 87427; 87449; 93005; 93306; 93970; 94002; 94003; 94640; 94667; 96365; 96367; 96375; 97161; 97164; 99285; A6261; C1725; C1893; C9113; G0482; J0282; J1160; J1650; J2060; J2543; J2704; J2930; J3370; J3475; J3480; J3490; J7030; J7040; J7050; J7060; J7608; J7611; J7620; J7626; J8597